=== PATIENT | male | born 1990 | race Caucasian/White ===

== ENCOUNTER 2019-02-27 11:51 | Emergency (ER) | payer BC, OTHER ==
[2019-02-27 11:55] VITALS: BP 155/65; PULSE 76; TEMP 97.9; BMI 23.0
--- NOTE | 2019-02-27 12:56 | PDOC ---
History of Present Illness - General Chief Complaint: Substance Abuse Stated Complaint: DETOX Time Seen by Provider: 02/27/19 12:55 - History of Present Illness Initial Comments: Mr. Berger is a 28M presenting today with heroin withdrawal. His last heroin use was yesterday, and he used 0.1 g. He has been using heroin daily for the past two years. He also uses clonopin 1-2x/week to sleep, and smokes cigarettes daily. Denies IV drug use. He reports that he went to [facility] two days ago for withdrawal but left AMA. He tried a methadone drink he bought on his own to address his withdrawal symptoms today. Today, he reports headache, hot and cold flashes, vomiting, chest pain on Wednesday that has since resolved, shortness of breath on exertion since , constipation. Past History - Past Medical History Allergies/Adverse Reactions: Allergies Allergy/AdvReac Type Severity Reaction Status Date / Time diphenhydramine Allergy Verified 02/27/19 11:54 [From Benadryl] diphenhydramine HCl Allergy Verified 02/27/19 11:54 [From Benadryl] Home Medications: Ambulatory Orders NK [No Known Home Medication] 09/01/18 COPD: No - Immunization History Immunization Up to Date: Yes - Suicide/Smoking/Psychosocial Hx Smoking Status: Yes Smoking History: Never smoked Number of Cigarettes Smoked Daily: 20 Review of Systems - Review of Systems Comments:: GENERAL/CONSTITUTIONAL: No fever or chills. No weakness. Reports hot and cold flashes. HEAD, EYES, EARS, NOSE AND THROAT: No change in vision. No ear pain or discharge. No sore throat. No nose bleed. CARDIOVASCULAR: Reports chest pain (resolved) and shortness of breath on exertion. RESPIRATORY: Denies cough, hemoptysis_ GASTROINTESTINAL: Reports vomiting and constipation. GENITOURINARY: No dysuria, frequency, or change in urination._ MUSCULOSKELETAL: No joint or muscle swelling or pain. No neck or back pain._ SKIN: No rash_ NEUROLOGIC: No headache, vertigo, loss of consciousness, or change in strength/ sensation._ ENDOCRINE: No increased thirst. No abnormal weight change_ HEMATOLOGIC/LYMPHATIC: No anemia, easy bleeding, or history of blood clots._ ALLERGIC/IMMUNOLOGIC: No hives or skin allergy._ *Physical Exam - Vital Signs Last Vital Signs Temp Pulse Resp BP Pulse Ox 97.9 F 76 18 155/65 95 02/27/19 11:54 02/27/19 11:54 02/27/19 11:54 02/27/19 11:54 02/27/19 11:54 - Physical Exam Comments: GENERAL: Awake, alert, and oriented to person/place/time, in no acute distress_ HEAD: No signs of trauma, normocephalic, atraumatic _ EYES: PERRLA, EOMI, sclera anicteric, conjunctiva clear_ ENT: Hearing grossly normal, nares patent, oropharynx clear without exudates. No uvular deviation. Moist mucosa. No septal deviation or perforation. NECK: Normal ROM, supple, no lymphadenopathy, JVD, or masses_ LUNGS: No distress, speaks in full sentences, clear to auscultation bilaterally _ HEART: Regular rate and rhythm, normal S1 and S2, no murmurs appreciated, peripheral pulses normal and equal bilaterally._ ABDOMEN: Soft, nontender, normoactive bowel sounds. No guarding, no rebound. No masses_ EXTREMITIES: Normal inspection, Normal range of motion, no edema. No clubbing or cyanosis_ NEUROLOGICAL: Cranial nerves II through XII grossly intact. Normal speech, normal gait, no focal sensorimotor deficits _ SKIN: Warm, Dry, normal turgor, no rashes or lesions noted_ Medical Decision Making - Medical Decision Making 02/27/19 13:30 28M presenting with heroin withdrawal. Reports withdrawal symptoms earlier today but none at bedside in the ED. Willing to go to detox. 02/27/19 14:[address] Siddiqui at [facility] detox, who accepts this patient for placement in detox program. Patient is medically cleared to go to detox. *DC/Admit/Observation/Transfer Diagnosis at time of Disposition: Withdrawal from opioids - Discharge Dispostion Disposition: HOME Condition at time of disposition: Stable Decision to Admit order: No - Referrals Referrals: Sergio Sharma MD [Primary Care Provider] - - Patient Instructions Printed Discharge Instructions: DI for Drug or Alcohol Withdrawal Additional Instructions: Please go to [facility] for registration into the detox program. Please return to the emergency room if you experience any new or worsening symptoms of withdrawal. - Post Discharge Activity
--- NOTE | 2019-02-27 14:48 | PDOC ---
Documentation entered by Vaishnavi Quinones SCRIBE, acting as scribe for Dana Carbone MD. Dana Carbone MD: This documentation has been prepared by the juanieJoni Adrianna, SCRIBE, under my direction and personally reviewed by me in its entirety. I confirm that the documentation accurately reflects all work, treatment, procedures, and medical decision making performed by me. Attending Attestation - Resident Resident Name: Tyson Dominique - ED Attending Attestation I have performed the following: I have examined & evaluated the patient, The case was reviewed & discussed with the resident, I agree w/resident's findings & plan, Exceptions are as noted - HPI HPI: The patient is a 28 year old male, with a significant PMH of heroin abuse, who presents to the ED seeking detox. Patient notes he has been using intranasal heroin for the past 2 years, and his last time using was yesterday. He notes he began feeling withdrawal symptoms earlier today (chills, nausea, vomit, constipation), so he obtained street methadone to alleviate his symptoms. Patient is not normally on methadone, and denies any history of detox. Patient denies any complaint of pain at this time. Allergies: Diphenhydramine Surgical History: None reported Social History: Heroin abuse PCP: Dr. Sharma - Physicial Exam PE: GENERAL: Awake, alert, and fully oriented, in no acute distress HEAD: No signs of trauma EYES: PERRLA, EOMI, sclera anicteric, conjunctiva clear ENT: Auricles normal inspection, hearing grossly normal, nares patent, oropharynx clear without exudates. Moist mucosa NECK: Normal ROM, supple, no lymphadenopathy, JVD, or masses LUNGS: Breath sounds equal, clear to auscultation bilaterally. No wheezes, and no crackles HEART: Regular rate and rhythm, normal S1 and S2, no murmurs, rubs or gallops ABDOMEN: Soft, nontender, normoactive bowel sounds. No guarding, no rebound. No masses EXTREMITIES: Normal range of motion, no edema. No clubbing or cyanosis. No cords, erythema, or tenderness NEUROLOGICAL: Cranial nerves II through XII grossly intact. Normal speech, normal gait SKIN: Warm, Dry, normal turgor, no rashes or lesions noted. - Medical Decision Making Pt with withdrawal symptoms, requesting detox. Symptoms are minimal at present, and there are no significant exam findings. Medically cleared, can go to detox if a bed is available. Will contact [facility].
== END 2019-02-27 15:21 | disposition home or self-care (01) ==
LOC: JER 11:51
DX: F11.23 Opioid dependence with withdrawal (principal); F17.210 Nicotine dependence, cigarettes, uncomplicated
CPT/HCPCS: 99282-25

== ENCOUNTER 2019-05-07 04:47 | Emergency (ER) | payer BC ==
[2019-05-07] MEDS ORDERED: IBUPROFEN 600 MG TABLET (FP) PO ONE ×2 (04:49→04:55)
[2019-05-07] MEDS ORDERED: ACETAMINOPHEN 325 MG TABLET (FP) PO ONE (04:49)
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
[2019-05-07] MEDS ORDERED: ACETAMINOPHEN 325 MG TABLET (FP) ONE (04:55)
[2019-05-07 05:03] VITALS: BP 110/64; PULSE 90; TEMP 98.2; BMI 25.7
== END 2019-05-07 06:10 | disposition home or self-care (01) ==
LOC: FER 04:47
DX: S00.83XA Contusion of other part of head, initial encounter (principal); S00.03XA Contusion of scalp, initial encounter; S09.90XA Unspecified injury of head, initial encounter; Y04.2XXA Assault by strike against or bumped into by another person, initial encounter; Y93.89 Activity, other specified; Y92.89 Other specified places as the place of occurrence of the external cause; F17.210 Nicotine dependence, cigarettes, uncomplicated
CPT/HCPCS: 70450-TC; 70486-TC; 72125-TC; 99281-25